=== PATIENT | female | born 1935 | race Hispanic/Latino ===

== ENCOUNTER → 2019-11-17 | Outpatient (CLI) | payer OTHER | END | disposition home or self-care (01) | LOC: SHCH 11:03 | PROVIDERS: ATTEND Internal Medicine Cardiovascular Disease | DX: I48.20 Chronic atrial fibrillation, unspecified (principal) | CPT/HCPCS: 93306 ==

== ENCOUNTER 2021-07-10 17:35 | Observation (INO) | payer MEDICARE ==
[~2021-07-10] VITALS: Ht 160 cm; Wt 58.7 kg
[2021-07-10 18:24] LABS: BASOPHILS % (AUTO) 0.2 % (0.0-5.0); EOSINOPHILS % (AUTO) 2.8 % (0.0-8.0); HEMATOCRIT 30.3 % (36-48); LYMPHOCYTES % (AUTO) 15.8 % (21.0-51.0); MEAN CORPUSCULAR HEMOGLOBIN 30.7 pg (27.0-33.0); MEAN CORPUSCULAR HGB CONC 32.3 g/dL (32.0-36.0); MONOCYTES % (AUTO) 11.2 % (3.0-13.0); NEUTROPHILS % (AUTO) 69.6 % (40.0-77.0); PLATELET COUNT (AUTO) 205 K/uL (130-400); RED BLOOD CELL COUNT(AUTO) 3.19 MIL/uL (4.00-5.50); RED CELL DISTRIBUTION WIDTH 13.4 % (11.0-15.5); WHITE BLOOD COUNT (AUTO) 8.9 K/uL (4.8-10.8)
[2021-07-10 18:44] LABS: ALBUMIN 2.9 g/dL (3.5-5.0); BILIRUBIN,TOTAL 0.5 mg/dL (0.2-1.0); CREATININE 0.6 mg/dL (0.5-1.5)
[2021-07-10 18:46] LABS: B-TYPE NATRIURETIC PEPTIDE 312 pg/mL (0-100)
[2021-07-10 18:55] LABS: POTASSIUM 2.6 mmol/L (3.5-5.1)
[2021-07-10] MEDS ORDERED: 0.9%NACL 1000ML 1,000 ML IV ONE (19:30)
[2021-07-10] MEDS ORDERED: POTASSIUM BICARB/CIT AC 25 MEQ TABLET.EFF PO ONE (19:30)
[2021-07-10] MEDS ORDERED: ACETAMINOPHEN 325 MG TAB PO PRN (20:00)
[2021-07-10] MEDS ORDERED: ALBUTEROL 0.083% 2.5 MG/3 ML INH IH PRN (20:00)
[2021-07-10] MEDS ORDERED: HYDRALAZINE 20MG/ML VIAL IV PRN (20:00)
[2021-07-10] MEDS ORDERED: LACTULOSE 20 GM/30 ML UDCUP PO PRN (20:00)
[2021-07-10] MEDS ORDERED: DOCUSATE SODIUM 100 MG CAP PO PRN (20:00)
[2021-07-10] MEDS ORDERED: ACETAMINOPHEN 650 MG SUPPOSITORY RC PRN (20:00)
[2021-07-10] MEDS ORDERED: RIVA20TA PO (22:06)
[2021-07-10] MEDS ORDERED: DONE10TA43 PO (22:06)
[2021-07-10] MEDS ORDERED: ATOR40TA69 PO (22:06)
[2021-07-10] MEDS ORDERED: METO-409 PO (22:06)
[2021-07-10] MEDS ORDERED: CETI10TA57 PO (22:06)
[2021-07-10] MEDS ORDERED: DIGO125T71 PO (22:06)
[2021-07-10] MEDS ORDERED: METO200T49 PO (22:06)
[2021-07-10] MEDS ORDERED: FURO-152 PO (22:06)
[2021-07-10] MEDS ORDERED: LOSA25TA41 PO (22:06)
[2021-07-10] MEDS ORDERED: ROSU20TA31 PO (22:06)
[2021-07-10] MEDS ORDERED: CALC-1085 PO (22:06)
[2021-07-10] MEDS ORDERED: MEMA10TA11 PO (22:06)
[2021-07-10] MEDS ORDERED: HYDR-4154 PO (22:06)
[2021-07-10] MEDS ORDERED: POTA-79 PO (22:06)
[2021-07-10] MEDS ORDERED: LEVO75CA5 PO (22:06)
[2021-07-10] MEDS ORDERED: CARB100C9 PO (22:06)
[2021-07-10] MEDS ORDERED: FAMO20TA8 PO (22:06)
[2021-07-10] MEDS ORDERED: MEMA10TA55 PO (22:06)
[2021-07-10] MEDS ORDERED: ASCO100031 PO (22:06)
[2021-07-10] MEDS ORDERED: MONT-39 PO (22:06)
[2021-07-10] MEDS ORDERED: PANT40TA54 PO (22:06)
[2021-07-10] MEDS ORDERED: TAMS-1 PO (22:06)
[2021-07-10] MEDS ORDERED: TRAM50TA4 PO (22:06)
[2021-07-10] MEDS ORDERED: FERR-72 PO (22:06)
[2021-07-10] MEDS ORDERED: METO50TA18 PO (22:06)
[2021-07-10] MEDS ORDERED: DOCU100C33 PO (22:06)
[2021-07-10] MEDS ORDERED: VENL75TA89 PO (22:06)
[2021-07-10] MEDS ORDERED: CYAN250014 PO (22:06)
[2021-07-10] MEDS ORDERED: METOPROLOL SUCCINATE 50 MG TAB.SR.24H PO ONE ×2 (23:22→23:30)
[2021-07-11] MEDS ORDERED: ONDANSETRON 4MG INJ IVP PRN (02:30)
[2021-07-11 02:46] LABS: APPEARANCE,URINE Cloudy (CLEAR); BILIRUBIN,URINE Negative (NEGATIVE); COLOR,URINE Yellow (YELLOW); GLUCOSE, URINE (UA) Negative (NEGATIVE); KETONES,URINE Negative (NEGATIVE); LEUKOCYTE ESTERASE ,URINE Large (NEGATIVE); NITRATE,URINE Negative (NEGATIVE); OCCULT BLOOD,URINE Trace (NEGATIVE); PH,URINE 8.5 (5.0-8.0); PROTEIN,URINE Negative (NEGATIVE)
[2021-07-11 02:46] LABS: HEMATOCRIT 28.3 % (36-48); MEAN CORPUSCULAR HEMOGLOBIN 31.5 pg (27.0-33.0); MEAN CORPUSCULAR HGB CONC 33.6 g/dL (32.0-36.0); MEAN CORPUSCULAR VOLUME 93.7 fL (79-99); RED BLOOD CELL COUNT(AUTO) 3.02 MIL/uL (4.00-5.50); RED CELL DISTRIBUTION WIDTH 13.8 % (11.0-15.5); WHITE BLOOD COUNT (AUTO) 7.7 K/uL (4.8-10.8)
[2021-07-11 03:09] LABS: BACTERIA,URINE Many /HPF (None Seen); MUCUS,URINE Few LPF (None Seen); SQUAMOUS EPITHELIAL CELL,UR Few /HPF (0-2)
[2021-07-11 03:10] LABS: CREATININE 0.5 mg/dL (0.5-1.5); MAGNESIUM 1.7 mg/dL (1.80-2.40); PHOSPHORUS 2.7 mg/dL (2.5-4.9); POTASSIUM 3.2 mmol/L (3.5-5.1)
[2021-07-11 03:15] VITALS: BP 109/76
[2021-07-11] MEDS ORDERED: KCL 20 MEQ ERTAB PO PRN (05:00)
[2021-07-11] MEDS ORDERED: MAGNESIUM 2GM PREMIX 50ML 50 ML IV PRN (05:00)
[2021-07-11] MEDS ORDERED: POTASSIUM CHLORIDE 20MEQ/100ML 100 ML IV PRN (05:00)
[2021-07-11] MEDS: POTASSIUM CHLORIDE 10% ELIXIR 20 MEQ/15 ML UDCUP PO PRN ×2 (05:20→11:27)
[2021-07-11 07:00] VITALS: BP 176/74
[2021-07-11] MEDS ORDERED: ENOXAPARIN SODIUM 30 MG/0.3 ML SQ SCH (09:00)
[2021-07-11 11:00] VITALS: BP 154/74
[2021-07-11] MEDS ORDERED: POLYETHYLENE GLYCOL 3350 17 GM POWD.PACK ONE (11:24)
[2021-07-11] MEDS ORDERED: LEVOFLOXACIN 500 MG TABLET ONE (11:24)
[2021-07-11] MEDS: POLYETHYLENE GLYCOL 3350 17 GM POWD.PACK PO SCH (11:26)
[2021-07-11] MEDS: LEVOFLOXACIN 500 MG TABLET PO SCH (11:26)
[2021-07-11 16:00] VITALS: BP 147/91
[2021-07-11 19:01] VITALS: BP 134/76
[2021-07-11] MEDS ORDERED: DONEPEZIL HCL 5 MG TAB PO SCH (21:00)
[2021-07-11] MEDS: INSULIN HUMULIN R 100 UNIT/ML 3ML SQ SCH (21:00)
[2021-07-11] MEDS: MONTELUKAST SODIUM 10 MG TAB PO SCH ×2 (21:19→21:37)
[2021-07-11] MEDS: METOPROLOL TARTRATE 50 MG TAB PO SCH (21:19)
[2021-07-11] MEDS: CARBAMAZEPINE 200 MG TABLET PO SCH (21:31)
[2021-07-11] MEDS: MEMANTINE HCL 5 MG TABLET PO SCH (21:32)
[2021-07-11 23:31] VITALS: BP 131/74
[2021-07-12] MEDS: HYDRALAZINE 25MG TABLET PO SCH ×4 (00:40→18:00)
[2021-07-12 03:17] VITALS: BP 131/76
[2021-07-12 04:22] LABS: BASOPHILS % (AUTO) 0.3 % (0.0-5.0); EOSINOPHILS % (AUTO) 1.7 % (0.0-8.0); HEMATOCRIT 28.6 % (36-48); LYMPHOCYTES % (AUTO) 20.1 % (21.0-51.0); MEAN CORPUSCULAR HEMOGLOBIN 30.4 pg (27.0-33.0); MEAN CORPUSCULAR HGB CONC 31.8 g/dL (32.0-36.0); MEAN CORPUSCULAR VOLUME 95.7 fL (79-99); MONOCYTES % (AUTO) 10.3 % (3.0-13.0); NEUTROPHILS % (AUTO) 67.2 % (40.0-77.0); PLATELET COUNT (AUTO) 202 K/uL (130-400); RED BLOOD CELL COUNT(AUTO) 2.99 MIL/uL (4.00-5.50); RED CELL DISTRIBUTION WIDTH 13.7 % (11.0-15.5); WHITE BLOOD COUNT (AUTO) 6.9 K/uL (4.8-10.8)
[2021-07-12 04:53] LABS: ALBUMIN 2.5 g/dL (3.5-5.0); BILIRUBIN,TOTAL 0.4 mg/dL (0.2-1.0); CREATININE 0.6 mg/dL (0.5-1.5); POTASSIUM 3.8 mmol/L (3.5-5.1); TOTAL PROTEIN, SERUM 6.1 g/dL (6.0-8.3)
[2021-07-12] MEDS: INSULIN HUMULIN R 100 UNIT/ML 3ML SQ SCH ×3 (06:03→16:30)
[2021-07-12] MEDS ORDERED: LEVOTHYROXINE 75 MCG TABLET PO SCH (06:30)
[2021-07-12 08:00] VITALS: BP 156/89
[2021-07-12] MEDS: CARBAMAZEPINE 200 MG TABLET PO SCH (08:37)
[2021-07-12] MEDS: METOPROLOL TARTRATE 50 MG TAB PO SCH (08:38)
[2021-07-12] MEDS: LEVOFLOXACIN 500 MG TABLET PO SCH (08:38)
[2021-07-12] MEDS: MEMANTINE HCL 5 MG TABLET PO SCH (08:38)
[2021-07-12] MEDS: POLYETHYLENE GLYCOL 3350 17 GM POWD.PACK PO SCH (08:40)
[2021-07-12] MEDS ORDERED: RIVAROXABAN 20 MG TABLET PO SCH (09:00)
[2021-07-12] MEDS ORDERED: KCL 20 MEQ ERTAB PO SCH (09:00)
[2021-07-12] MEDS ORDERED: ATORVASTATIN 40 MG TABLET PO SCH ×2 (09:00)
[2021-07-12] MEDS ORDERED: TAMSULOSIN HCL 0.4 MG CAP.ER.24H PO SCH (09:00)
[2021-07-12] MEDS ORDERED: FUROSEMIDE 20 MG TABLET PO SCH (09:00)
[2021-07-12] MEDS ORDERED: ASCORBIC ACID 500 MG TAB PO SCH (09:00)
[2021-07-12] MEDS ORDERED: CA 600MG+VIT D 400 UNIT TAB 1 TAB TABLET PO SCH (09:00)
[2021-07-12] MEDS ORDERED: CETIRIZINE HCL 5 MG TABLET PO SCH (09:00)
[2021-07-12] MEDS ORDERED: FERROUS SULFATE 325 MG TABLET.DR PO SCH (09:00)
[2021-07-12] MEDS ORDERED: LOSARTAN 25 MG TABLET PO SCH (09:00)
[2021-07-12] MEDS ORDERED: CYANOCOBALAMIN (VITAMIN B-12) 1,000 MCG TABLET PO SCH (09:00)
[2021-07-12 11:57] VITALS: BP 143/66
[2021-07-12] MEDS ORDERED: LEVO500T90 PO (15:44)
[2021-07-12 16:00] VITALS: BP 129/77
[2021-07-12] MEDS ORDERED: DIGOXIN 125 MCG TABLET PO SCH (16:00)
[2021-07-14] MEDS ORDERED: VERA120T92 PO (10:56)
== END 2021-07-12 18:30 ==
LOC: EDH 17:35 → UNDOADMOB 19:29 → EDHIP 19:29 → INTOOBSV 19:42 → EDHIP 19:42 → OBSVTOIN 19:42 → 2DH 07-11 03:50
PROVIDERS: ADMIT Internal Medicine; ATTEND Internal Medicine
DX: E87.6 Hypokalemia (principal); E87.70 Fluid overload, unspecified; E87.8 Other disorders of electrolyte and fluid balance, not elsewhere classified; I48.20 Chronic atrial fibrillation, unspecified; E11.65 Type 2 diabetes mellitus with hyperglycemia; I10 Essential (primary) hypertension; D63.8 Anemia in other chronic diseases classified elsewhere; E03.9 Hypothyroidism, unspecified; I48.91 Unspecified atrial fibrillation; E78.00 Pure hypercholesterolemia, unspecified; E78.5 Hyperlipidemia, unspecified; E83.42 Hypomagnesemia; E87.1 Hypo-osmolality and hyponatremia; I27.20 Pulmonary hypertension, unspecified; N39.0 Urinary tract infection, site not specified; Z79.01 Long term (current) use of anticoagulants; Z79.890 Hormone replacement therapy; Z79.899 Other long term (current) drug therapy; Z86.73 Personal history of transient ischemic attack (TIA), and cerebral infarction without residual deficits; Z88.2 Allergy status to sulfonamides; Z98.49 Cataract extraction status, unspecified eye; Z98.890 Other specified postprocedural states; Z95.0 Presence of cardiac pacemaker
CPT/HCPCS: 36415 ×4; 71045; 80048; 80053 ×2; 80061; 81001; 82550 ×2; 82948 ×4; 83735; 83874 ×2; 83880 ×2; 84100; 84132; 84484 ×3; 85025 ×3; 85027; 85610; 85730; 87077 ×2; 87088; 87186 ×2; 93005 ×2; 96361 ×2; 96365; 96375; 99285; G0378 ×46; J1650; J3475; J7030; 96366

== ENCOUNTER 2021-07-15 07:57 | Day surgery (SDC) | payer MEDICARE ==
[2021-07-10 11:25] LABS: BASOPHILS % (AUTO) 0.2 % (0.0-5.0); EOSINOPHILS % (AUTO) 1.9 % (0.0-8.0); LYMPHOCYTES % (AUTO) 14.3 % (21.0-51.0); MEAN CORPUSCULAR HEMOGLOBIN 31.6 pg (27.0-33.0); MEAN CORPUSCULAR HGB CONC 32.9 g/dL (32.0-36.0); MONOCYTES % (AUTO) 8.7 % (3.0-13.0); NEUTROPHILS % (AUTO) 74.5 % (40.0-77.0); PLATELET COUNT (AUTO) 217 K/uL (130-400); RED BLOOD CELL COUNT(AUTO) 3.23 MIL/uL (4.00-5.50); RED CELL DISTRIBUTION WIDTH 13.7 % (11.0-15.5); WHITE BLOOD COUNT (AUTO) 9.6 K/uL (4.8-10.8)
[2021-07-10 11:31] LABS: CREATININE 0.6 mg/dL (0.5-1.5)
[2021-07-10 11:33] LABS: INR 1.47 (0.85-1.15); PROTHROMBIN TIME 15.5 SEC (9.6-11.6)
[2021-07-10 11:47] LABS: POTASSIUM 2.8 mmol/L (3.5-5.1)
[2021-07-14 10:39] VITALS: BP 161/73
[2021-07-15] VITALS (9 sets, daily range): BP systolic 148–179; BP diastolic 72–98
[~2021-07-15] VITALS: Ht 160 cm; Wt 61.0 kg
[~2021-07-15 07:57] MED LIST: 0.9% NACL 500ML IV.SOLN 500 ML IV SCH; ATOR40TA69 PO; CALC-1085 PO; CARB100C9 PO; CETI10TA57 PO; DIGO125T71 PO; DOCU100C33 PO; DONE10TA43 PO; FERR-72 PO; FURO-152 PO; LEVO75CA5 PO; LOSA25TA41 PO; MEMA10TA11 PO; METO50TA18 PO; MONT-39 PO; POTA-79 PO; RIVA20TA PO; TAMS-1 PO; TRAM50TA4 PO; VENL75TA89 PO; VERA120T92 PO
[2021-07-15] MEDS ORDERED: 0.9%NACL 1000ML 1,000 ML IV ONE (08:20)
[2021-07-15 08:37] LABS: CREATININE 0.7 mg/dL (0.5-1.5); MAGNESIUM 2.1 mg/dL (1.80-2.40); POTASSIUM 3.4 mmol/L (3.5-5.1)
[2021-07-15] MEDS ORDERED: HEPARIN 1,000 UNIT VIAL ONE (11:51)
[2021-07-15] MEDS ORDERED: MEPERIDINE-PF 25 MG/ML SYG ONE (11:51)
[2021-07-15] MEDS ORDERED: MIDAZOLAM HCL 1 MG/ML 2ML VIAL ONE (11:51)
[2021-07-15] MEDS ORDERED: LIDOCAINE HCL 400MG/20ML VIAL ONE (11:52)
== END 2021-07-15 16:29 | disposition home or self-care (01) ==
LOC: DAH 07:57
PROVIDERS: ATTEND Internal Medicine Cardiovascular Disease
DX: I48.21 Permanent atrial fibrillation (principal); I44.2 Atrioventricular block, complete; Z95.0 Presence of cardiac pacemaker; Z79.899 Other long term (current) drug therapy; Z88.6 Allergy status to analgesic agent; Z88.1 Allergy status to other antibiotic agents
CPT/HCPCS: 36415; 80048; 82948 ×2; 83735; 93005; 93619; 93650; A4215; A4216; A4221; A4222; A4223 ×3; A4520; A4554; A4606; A4649 ×2; A4663; C1732; C1894; J1644 ×2; J2175; J2250; J3490; J7030; 85025; 85610; 85730; 99156; 99157

== ENCOUNTER 2021-07-23 09:03 | Inpatient (IN) | payer MEDICARE ==
[~2021-07-23] VITALS: Ht 157.5 cm; Wt 63.3 kg
[~2021-07-23 09:03] MED LIST changes: -0.9% NACL 500ML IV.SOLN 500 ML IV SCH; -DIGO125T71 PO; -VERA120T92 PO
[2021-07-23] MEDS ORDERED: ACETAMINOPHEN 500 MG TABLET PO ONE (09:30)
[2021-07-23 10:31] LABS: BASOPHILS % (AUTO) 0.1 % (0.0-5.0); EOSINOPHILS % (AUTO) 0.2 % (0.0-8.0); HEMATOCRIT 34.9 % (36-48); MEAN CORPUSCULAR HEMOGLOBIN 31.8 pg (27.0-33.0); MEAN CORPUSCULAR VOLUME 96.4 fL (79-99); MONOCYTES % (AUTO) 4.8 % (3.0-13.0); NEUTROPHILS % (AUTO) 89.3 % (40.0-77.0); PLATELET COUNT (AUTO) 243 K/uL (130-400); RED BLOOD CELL COUNT(AUTO) 3.62 MIL/uL (4.00-5.50); RED CELL DISTRIBUTION WIDTH 14.4 % (11.0-15.5); WHITE BLOOD COUNT (AUTO) 14.4 K/uL (4.8-10.8)
[2021-07-23 10:39] LABS: CREATININE 0.7 mg/dL (0.5-1.5); POTASSIUM 3.4 mmol/L (3.5-5.1)
[2021-07-23 10:45] LABS: ALBUMIN 3.2 g/dL (3.5-5.0); BILIRUBIN,TOTAL 0.6 mg/dL (0.2-1.0); TOTAL PROTEIN, SERUM 7.2 g/dL (6.0-8.3)
[2021-07-23 10:53] LABS: PROTHROMBIN TIME 10.9 SEC (9.6-11.6)
[2021-07-23] MEDS: INSULIN HUMULIN R 100 UNIT/ML 3ML SQ SCH ×3 (10:59→20:11)
[2021-07-23] MEDS ORDERED: LABETALOL 20MG SYG IV PRN (11:00)
[2021-07-23] MEDS ORDERED: ALBUTEROL 0.083% 2.5 MG/3 ML INH IH PRN (11:00)
[2021-07-23] MEDS ORDERED: ACETAMINOPHEN 325 MG TAB PO PRN (11:00)
[2021-07-23] MEDS ORDERED: HYDRALAZINE 20MG/ML VIAL IV PRN (11:00)
[2021-07-23] MEDS ORDERED: FAMO20TA8 PO (11:21)
[2021-07-23] MEDS ORDERED: PANT40GR PO (11:21)
[2021-07-23] MEDS ORDERED: HYDR-4154 PO (11:21)
[2021-07-23] MEDS ORDERED: ASCO100031 PO (11:21)
[2021-07-23] MEDS ORDERED: CYAN-52 PO (11:21)
[2021-07-23] MEDS: DEXTROSE 5%-LACTATED RINGERS 1,000 ML IV SCH ×2 (11:23→22:50)
[2021-07-23 11:54] LABS: APPEARANCE,URINE Clear (CLEAR); BILIRUBIN,URINE Negative (NEGATIVE); COLOR,URINE Yellow (YELLOW); GLUCOSE, URINE (UA) Negative (NEGATIVE); KETONES,URINE Trace mg/dL (NEGATIVE); LEUKOCYTE ESTERASE ,URINE Trace (NEGATIVE); NITRATE,URINE Negative (NEGATIVE); OCCULT BLOOD,URINE Negative (NEGATIVE); PROTEIN,URINE Negative (NEGATIVE); UROBILINOGEN,URINE 0.2 mg/dL (0.2-1.0)
[2021-07-23 12:38] LABS: BACTERIA,URINE Rare /HPF (None Seen); RBC,URINE 0-1 /HPF (0-1); SQUAMOUS EPITHELIAL CELL,UR Rare /HPF (0-2); WBC,URINE 0-1 /HPF (0-1)
[2021-07-23 13:50] VITALS: BP 164/105
[2021-07-23] MEDS ORDERED: KETOROLAC 15MG/ML VIAL (15MG/ML) ONE (13:57)
[2021-07-23] MEDS: KETOROLAC 15MG/ML VIAL (15MG/ML) IV PRN (14:00)
[2021-07-23] MEDS: GABAPENTIN 100 MG CAPSULE PO SCH ×2 (14:09→20:07)
[2021-07-23 19:00] VITALS: BP 150/68
[2021-07-23] MEDS: ONDANSETRON 4MG INJ IVP PRN (20:02)
[2021-07-23] MEDS: HYDROMORPHONE 0.5 MG SYG (0.5MG/0.5ML) IVP PRN (20:07)
[2021-07-24] VITALS: BP 129/54
[2021-07-24 04:00] VITALS: BP 141/71
[2021-07-24 04:19] LABS: HEMATOCRIT 29.6 % (36-48); MEAN CORPUSCULAR HEMOGLOBIN 30.6 pg (27.0-33.0); MEAN CORPUSCULAR HGB CONC 31.4 g/dL (32.0-36.0); MEAN CORPUSCULAR VOLUME 97.4 fL (79-99); RED BLOOD CELL COUNT(AUTO) 3.04 MIL/uL (4.00-5.50); RED CELL DISTRIBUTION WIDTH 14.6 % (11.0-15.5); WHITE BLOOD COUNT (AUTO) 5.7 K/uL (4.8-10.8)
[2021-07-24 04:36] LABS: CREATININE 0.6 mg/dL (0.5-1.5); MAGNESIUM 1.9 mg/dL (1.80-2.40); PHOSPHORUS 3.4 mg/dL (2.5-4.9); POTASSIUM 3.6 mmol/L (3.5-5.1)
[2021-07-24] MEDS: INSULIN HUMULIN R 100 UNIT/ML 3ML SQ SCH ×4 (05:40→20:08)
[2021-07-24 08:00] VITALS: BP 141/62
[2021-07-24] MEDS: ONDANSETRON 4MG INJ IVP PRN ×2 (08:27→20:11)
[2021-07-24] MEDS: PANTOPRAZOLE 40 MG/VIAL IVP SCH (08:27)
[2021-07-24] MEDS: KETOROLAC 15MG/ML VIAL (15MG/ML) IV PRN ×2 (08:28→20:11)
[2021-07-24] MEDS: GABAPENTIN 100 MG CAPSULE PO SCH ×3 (08:29→20:11)
[2021-07-24] MEDS: HYDROMORPHONE 0.5 MG SYG (0.5MG/0.5ML) IVP PRN (08:30)
[2021-07-24 12:00] VITALS: BP 128/60
[2021-07-24] MEDS: DEXTROSE 5%-LACTATED RINGERS 1,000 ML IV SCH (14:30)
[2021-07-24 15:49] VITALS: BP 143/65
[2021-07-24 19:00] VITALS: BP 143/65
[2021-07-24] MEDS: ENOXAPARIN SODIUM 40 MG/0.4 ML SYRINGE SQ SCH (20:11)
[2021-07-25] VITALS (23 sets, daily range): BP systolic 116–166; BP diastolic 37–72
[2021-07-25] MEDS: DEXTROSE 5%-LACTATED RINGERS 1,000 ML IV SCH ×2 (03:00→17:27)
[2021-07-25] MEDS: INSULIN HUMULIN R 100 UNIT/ML 3ML SQ SCH ×4 (05:14→19:56)
[2021-07-25] MEDS: KETOROLAC 15MG/ML VIAL (15MG/ML) IV PRN ×2 (05:48→21:50)
[2021-07-25] MEDS: ONDANSETRON 4MG INJ IVP PRN (07:05)
[2021-07-25] MEDS: HYDROMORPHONE 0.5 MG SYG (0.5MG/0.5ML) IVP PRN (07:05)
[2021-07-25] MEDS: GABAPENTIN 100 MG CAPSULE PO SCH ×3 (08:10→19:59)
[2021-07-25] MEDS: ENOXAPARIN SODIUM 40 MG/0.4 ML SYRINGE SQ SCH (08:10)
[2021-07-25] MEDS: PANTOPRAZOLE 40 MG/VIAL IVP SCH (08:10)
[2021-07-25] MEDS ORDERED: SUCCINYLCHOLINE 200MG/10ML SYR ONE (10:26)
[2021-07-25] MEDS ORDERED: SUCCINYLCHOLINE CHLORIDE 20 MG/ML 10 ML VIAL ONE (10:26)
[2021-07-25] MEDS ORDERED: ONDANSETRON 4MG INJ ONE (10:26)
[2021-07-25] MEDS ORDERED: LIDOCAINE PF 100MG/5ML (2%) SYRINGE 5ML ONE (10:26)
[2021-07-25] MEDS ORDERED: DEXAMETHASONE SOD PHOSPHATE 10MG/ML 1ML VIAL ONE (10:27)
[2021-07-25] MEDS ORDERED: GLYCOPYRROLATE 1 MG/5 ML SYRINGE ONE (10:27)
[2021-07-25] MEDS ORDERED: ROCURONIUM 10MG/1ML SYR 10 MG/ML ML ONE (10:27)
[2021-07-25] MEDS ORDERED: PROPOFOL 10 MG/ML 20ML VIAL IV ONE (10:27)
[2021-07-25] MEDS ORDERED: MIDAZOLAM HCL 1 MG/ML 2ML VIAL ONE (10:27)
[2021-07-25] MEDS ORDERED: FENTANYL CITRATE PF 50 MCG/1 ML 2ML VIAL ONE (10:27)
[2021-07-25] MEDS ORDERED: NEOSTIGMINE 5MG/5ML SYR IV ONE (10:27)
[2021-07-25] MEDS ORDERED: ROPIVACAINE 0.5% 5MG/ML 30ML IJ ONE (10:32)
[2021-07-25] MEDS ORDERED: PHENYLEPHRINE HCL 10 MG/ML 1ML VIAL IV ONE (10:34)
[2021-07-25] MEDS ORDERED: 0.9%NACL 1000ML 1,000 ML IV ONE (11:35)
[2021-07-25] MEDS ORDERED: CEFAZOLIN SODIUM 1 GM VIAL ONE (11:35)
[2021-07-25] MEDS ORDERED: CEFAZOLIN SODIUM 1 GM VIAL IVP ONE (12:09)
[2021-07-25] MEDS ORDERED: MEPERIDINE-PF 25 MG/ML SYG ONE (13:45)
[2021-07-25] MEDS ORDERED: DEXTROSE 50%-WATER 50 ML DISP.SYRIN IV ONE (14:09)
[2021-07-26] VITALS: BP 132/59
[2021-07-26 04:00] VITALS: BP_SYST 132; BP_SYST 134; BP_DIAS 59
[2021-07-26] MEDS: DEXTROSE 5%-LACTATED RINGERS 1,000 ML IV SCH ×2 (04:12→19:33)
[2021-07-26 04:29] LABS: HEMATOCRIT 26.3 % (36-48); MEAN CORPUSCULAR HEMOGLOBIN 30.6 pg (27.0-33.0); MEAN CORPUSCULAR HGB CONC 31.2 g/dL (32.0-36.0); MEAN CORPUSCULAR VOLUME 98.1 fL (79-99); RED BLOOD CELL COUNT(AUTO) 2.68 MIL/uL (4.00-5.50); RED CELL DISTRIBUTION WIDTH 14.3 % (11.0-15.5); WHITE BLOOD COUNT (AUTO) 9.1 K/uL (4.8-10.8)
[2021-07-26 04:43] LABS: CREATININE 0.7 mg/dL (0.5-1.5); MAGNESIUM 1.4 mg/dL (1.80-2.40); POTASSIUM 3.4 mmol/L (3.5-5.1)
[2021-07-26] MEDS: INSULIN HUMULIN R 100 UNIT/ML 3ML SQ SCH ×4 (06:03→21:00)
[2021-07-26 08:00] VITALS: BP 137/48
[2021-07-26] MEDS: LACTULOSE 20 GM/30 ML UDCUP PO PRN (09:16)
[2021-07-26] MEDS: PANTOPRAZOLE 40 MG/VIAL IVP SCH (09:16)
[2021-07-26] MEDS: GABAPENTIN 100 MG CAPSULE PO SCH ×3 (09:16→21:03)
[2021-07-26] MEDS: KETOROLAC 15MG/ML VIAL (15MG/ML) IV PRN (09:17)
[2021-07-26] MEDS: ENOXAPARIN SODIUM 30 MG/0.3 ML SQ SCH (09:17)
[2021-07-26 12:00] VITALS: BP 110/40
[2021-07-26] MEDS ORDERED: TRAMADOL HCL 50 MG TABLET PO PRN (12:30)
[2021-07-26 13:03] LABS: HEMATOCRIT 28.6 % (36-48)
[2021-07-26 16:00] VITALS: BP 103/40
[2021-07-26 20:00] VITALS: BP 107/52
[2021-07-27] VITALS: BP 129/47
[2021-07-27 03:51] VITALS: BP 138/64
[2021-07-27 04:28] LABS: HEMATOCRIT 22.9 % (36-48); MEAN CORPUSCULAR HEMOGLOBIN 31.6 pg (27.0-33.0); MEAN CORPUSCULAR HGB CONC 32.8 g/dL (32.0-36.0); MEAN CORPUSCULAR VOLUME 96.6 fL (79-99); RED BLOOD CELL COUNT(AUTO) 2.37 MIL/uL (4.00-5.50); RED CELL DISTRIBUTION WIDTH 14.4 % (11.0-15.5); WHITE BLOOD COUNT (AUTO) 9.8 K/uL (4.8-10.8)
[2021-07-27 04:37] LABS: CREATININE 0.6 mg/dL (0.5-1.5); MAGNESIUM 1.6 mg/dL (1.80-2.40); POTASSIUM 3.2 mmol/L (3.5-5.1)
[2021-07-27] MEDS: GABAPENTIN 100 MG CAPSULE PO SCH ×3 (06:13→20:34)
[2021-07-27] MEDS: INSULIN HUMULIN R 100 UNIT/ML 3ML SQ SCH ×4 (06:33→20:33)
[2021-07-27 07:56] VITALS: BP 123/55
[2021-07-27] MEDS: PANTOPRAZOLE 40 MG/VIAL IVP SCH (08:45)
[2021-07-27] MEDS: ONDANSETRON 4MG INJ IVP PRN (08:45)
[2021-07-27] MEDS: HYDROMORPHONE 0.5 MG SYG (0.5MG/0.5ML) IVP PRN ×3 (08:47→20:42)
[2021-07-27] MEDS: LACTULOSE 20 GM/30 ML UDCUP PO PRN (09:00)
[2021-07-27] MEDS: ENOXAPARIN SODIUM 30 MG/0.3 ML SQ SCH (09:00)
[2021-07-27 10:57] VITALS: BP 121/47
[2021-07-27] MEDS ORDERED: BISACODYL 10 MG SUPP.RECT RC PRN (12:00)
[2021-07-27] MEDS ORDERED: MAGNESIUM 2GM PREMIX 50ML 50 ML IV SCH (12:00)
[2021-07-27] MEDS: POTASSIUM CHLORIDE 10% ELIXIR 20 MEQ/15 ML UDCUP PO SCH (12:27)
[2021-07-27] MEDS: BISACODYL 10 MG SUPP.RECT RC SCH (12:27)
[2021-07-27 16:12] VITALS: BP 146/55
[2021-07-27 20:12] VITALS: BP 125/55
[2021-07-28] VITALS: BP 113/51
[2021-07-28 04:31] VITALS: BP 121/49
[2021-07-28 05:22] LABS: MAGNESIUM 2.1 mg/dL (1.80-2.40); POTASSIUM 3.9 mmol/L (3.5-5.1)
[2021-07-28] MEDS: GABAPENTIN 100 MG CAPSULE PO SCH ×2 (05:25→13:29)
[2021-07-28] MEDS: DEXTROSE 5%-LACTATED RINGERS 1,000 ML IV SCH (05:26)
[2021-07-28] MEDS: INSULIN HUMULIN R 100 UNIT/ML 3ML SQ SCH ×2 (05:40→11:30)
[2021-07-28 08:00] VITALS: BP 112/52
[2021-07-28] MEDS: ENOXAPARIN SODIUM 30 MG/0.3 ML SQ SCH (08:39)
[2021-07-28] MEDS: PANTOPRAZOLE 40 MG/VIAL IVP SCH (08:39)
[2021-07-28] MEDS: ONDANSETRON 4MG INJ IVP PRN (08:41)
[2021-07-28] MEDS: HYDROMORPHONE 0.5 MG SYG (0.5MG/0.5ML) IVP PRN (09:33)
[2021-07-28 11:56] VITALS: BP 131/54
[2021-07-28] MEDS: POTASSIUM CHLORIDE 10% ELIXIR 20 MEQ/15 ML UDCUP PO SCH (12:00)
[2021-07-28] MEDS: BISACODYL 10 MG SUPP.RECT RC SCH (12:00)
== END 2021-07-28 16:20 | DRG 522 ==
LOC: EDH 09:03 → OBSVTOIN 10:35 → EDHIP 10:35 → 4DH 12:24 → 4AH 07-25 22:11
PROVIDERS: ADMIT Internal Medicine Critical Care Medicine; ATTEND Internal Medicine Critical Care Medicine
PROC: 0SRS0J9 Replacement of Left Hip Joint, Femoral Surface with Synthetic Substitute, Cemented, Open Approach (ICD-10-PCS; principal; 2021-07-25 11:38)
DX: S72.002A Fracture of unspecified part of neck of left femur, initial encounter for closed fracture (principal); I48.20 Chronic atrial fibrillation, unspecified; D68.69 Other thrombophilia; W01.0XXA Fall on same level from slipping, tripping and stumbling without subsequent striking against object, initial encounter; Z20.822 Contact with and (suspected) exposure to COVID-19; G30.9 Alzheimer's disease, unspecified; I27.20 Pulmonary hypertension, unspecified; D63.8 Anemia in other chronic diseases classified elsewhere; E78.00 Pure hypercholesterolemia, unspecified; E03.9 Hypothyroidism, unspecified; E11.9 Type 2 diabetes mellitus without complications; I10 Essential (primary) hypertension; E78.5 Hyperlipidemia, unspecified; F02.80 Dementia in other diseases classified elsewhere, unspecified severity, without behavioral disturbance, psychotic disturbance, mood disturbance, and anxiety; Y93.89 Activity, other specified; Y92.128 Other place in nursing home as the place of occurrence of the external cause; Y99.8 Other external cause status; Z86.73 Personal history of transient ischemic attack (TIA), and cerebral infarction without residual deficits; Z79.899 Other long term (current) drug therapy; Z88.2 Allergy status to sulfonamides; Z88.5 Allergy status to narcotic agent; Z79.01 Long term (current) use of anticoagulants; Z95.810 Presence of automatic (implantable) cardiac defibrillator; Z87.440 Personal history of urinary (tract) infections
CPT/HCPCS: 36415; 71045; 73522; 73560; 80048; 80053; 81001; 82140; 82948; 83735; 84100; 84132; 84145; 84484; 85014; 85018; 85025; 85027; 85610; 86850; 86900; 86901; 86923; 87635; 87804; 93005; 97039; 99291; C1776; C9113; G0378; J0330; J0690; J1100; J1170; J1650; J1885; J2001; J2175; J2250; J2370; J2405; J2704; J2710; J2795; J3010; J3475; J3490; J7030; J7070